=== PATIENT | female | born 1940 | race Caucasian/White ===

== ENCOUNTER 2018-01-18 20:33 | Emergency (ER) | payer MEDICARE ==
--- NOTE | 2018-01-18 21:09 | RAD ---
SINGLE VIEW OF THE CHEST: 01/18/18 COMPARISON: 10/16/16 HISTORY: Chest pain. Nausea and vomiting. FINDINGS: Single view of the chest shows a normal sized cardiomediastinal silhouette. There is no evidence of c onsolidation, mass, or pleural effusion. The bones are unremarkable. IMPRESSION: No evidence of acute cardiopulmonary disease. POS: [facility]
[2018-01-18 21:14] LABS: #Eosinphils 0.1 thou/uL (0.0-0.7); #Lymphocytes 1.8 thou/uL (1.20-3.40); #Monocytes 0.6 thou/uL (0.11-0.59); #Neutrophils 9.2 thou/uL (1.40-6.50); %Eosinophils 0.6 % (0.0-10.0); %Monocytes 5.3 % (0.0-10.0); Hemoglobin 14.2 g/dL (12.0-16.0); Mean Corpuscular HGB CONC 34.2 g/dL (32.0-36.0); Mean Corpuscular Hemoglobin 30.6 pg (27.0-31.0); Mean Corpuscular Volume 89.5 fl (81.0-99.0); Mean Platelet Volume 6.4 fL (7.4-10.4); Platelet Count 289 thou/uL (130-400); RBC Distribution Width 12.4 % (11.5-14.5); Red Blood Cell (RBC) Count 4.65 mill/uL (4.20-5.40); White Blood Cell (WBC) Count 11.6 thou/uL (4.8-10.8)
[2018-01-18 21:32] LABS: ALT (SGPT) 22 U/L (8-55); AST (SGOT) 18 U/L (5-34); Albumin 4.1 g/dL (3.4-4.8); Alkaline Phosphatase 97 U/L (40-150); Anion Gap 17 mmol/L (10-20); BUN (Urea Nitrogen) 13 mg/dL (9.8-20.1); Bilirubin, Total 0.4 mg/dL (0.2-1.2); Calc. Creatinine Clearance 0 mL/min (70-130); Calcium 10.6 mg/dL (7.8-10.44); Carbon Dioxide 26 mmol/L (23-31); Chloride 90 mmol/L (98-107); Estimated GFR-MDRD 75; Glucose 175 mg/dL (83-110); Protein, Total 7.1 g/dL (6.0-8.3); Sodium 129 mmol/L (136-145)
[2018-01-18 21:34] LABS: CKMB 1.4 ng/mL (0-6.6); Troponin I Less than 0.010 ng/mL (< 0.028)
--- NOTE | 2018-01-18 21:59 | CT ---
CT OF THE ABDOMEN AND PELVIS WITHOUT CONTRAST 01/18/18 COMPARISON: None. HISTORY: Intractable emesis. Generalized sick feeling that began this morning with weakness, nausea, and vomit ing. TECHNIQUE: Multiple contiguous axial images were obtained in a CT of the abdomen and pelvis without contrast. Co margo reformats were performed. FINDINGS: The liver, gallbladder, left kidney, adrenal glands, spleen and pancreas are unremarkable, although e valuation is limited without IV contrast. There is a small hypodensity emanating from the left kidney measuring 1.4 cm in size. This has a mean Hounsfield unit value of 11 and is nonspecific but could r epresent a cyst. There are scattered diverticula in the colon. The small bowel and appendix are unremarkable. The repr oductive organs are unremarkable. No abdominal or pelvic lymphadenopathy are seen. Atherosclerotic ca lcifications are seen in the aorta. Degenerative changes are seen in the spine. The visualized inferior thorax and abdominal wall soft ti ssues are unremarkable. IMPRESSION: 1. No evidence of acute intra-abdominal/pelvic abnormality. 2. Diverticulosis without evidence of acute diverticulitis. 3. Possible small right renal cyst. A nonemergent renal ultrasound is recommend to ensure that t his is a cystic and not a solid mass. This can be performed on an outpatient basis. POS: [facility]
== END 2018-01-18 22:31 | disposition home or self-care (01) ==
LOC: ERS 20:33
DX: G43.A1 Cyclical vomiting, in migraine, intractable (principal); I10 Essential (primary) hypertension; E11.9 Type 2 diabetes mellitus without complications; I25.10 Atherosclerotic heart disease of native coronary artery without angina pectoris; Z87.891 Personal history of nicotine dependence; Z79.84 Long term (current) use of oral hypoglycemic drugs; Z79.899 Other long term (current) drug therapy; Z79.82 Long term (current) use of aspirin
CPT/HCPCS: 36415; 71045; 74176; 80053; 82553; 83880; 84443; 84484; 85025; 93005; 96360

== ENCOUNTER 2018-02-15 08:26 | Outpatient (CLI) | payer MEDICARE, OTHER | END 2018-02-15 08:27 | disposition home or self-care (01) | LOC: BICULT 08:26 | PROVIDERS: ATTEND Internal Medicine Gastroenterology | DX: R11.2 Nausea with vomiting, unspecified (principal); R42 Dizziness and giddiness; E11.9 Type 2 diabetes mellitus without complications; R19.7 Diarrhea, unspecified; N28.1 Cyst of kidney, acquired; E66.9 Obesity, unspecified; E87.1 Hypo-osmolality and hyponatremia; K76.0 Fatty (change of) liver, not elsewhere classified | CPT/HCPCS: 76700 ==

== ENCOUNTER 2018-02-23 13:10 | Day surgery (SDC) | payer MEDICARE, OTHER ==
[2018-02-22 12:27] VITALS: BMI 45.3
[~2018-02-23 13:10] MED LIST: Lidocaine 1% PF 5 ML VIAL ONE; PROPOFOL 200 MG/20 ML VIAL ONE
[2018-02-23] MEDS ORDERED: Fentanyl 100 MCG/2 ML VIAL ONE (15:40)
--- NOTE | 2018-02-23 17:05 | OP ---
DATE OF PROCEDURE: 02/23/2018 PROCEDURE: Colonoscopy with snare polypectomy and biopsy. PREPROCEDURE DIAGNOSES: 1. Unexplained diarrhea. 2. Colon cancer screening. POSTPROCEDURE DIAGNOSES: 1. Exam to cecum; adequate bowel preparation. 2. Small, 5 mm sessile polyp in the cecum, removed by snare electrocautery. 3. Small, 3 mm, sessile polyp in the transverse colon, removed by cold snare technique. 4. Probable small submucosal lipoma in the mid ascending colon, biopsied. 5. Random biopsies obtained in the transverse colon for histopathology. 6. No evidence of overt colitis or ulcers. 7. Moderate left colonic diverticulosis. 8. Small internal hemorrhoids. 9. Otherwise normal colonoscopy. PROCEDURE IN DETAIL: Written informed consent was obtained. Upon completion of the EGD, the patient was repositioned for the colonoscopy. A digital rectal exam was performed that was unremarkable. A Pentax video colonoscope was inserted through the anal canal and advanced under direct visualization to the cecum. Position in the cecum was verified by clear identification of the appendiceal orifice and the ileocecal valve. The quality of the bowel preparation was adequate. Endoscopic findings re vealed small sessile polyp in the cecum, that measured approximately 5 mm and was removed by snare el ectrocautery. Good hemostasis was verified post-polypectomy. The tissue was submitted to pathology. Another smaller sessile polyp in the transverse colon measuring about 3 mm in diameter was removed by cold snare technique. The polyp tissue was retrieved and submitted to pathology. In the mid asce nding colon, a small to medium size submucosal lipoma was identified and biopsied. The overlying muc brooke was intact. The lipoma itself was soft and pliable when probed with the biopsy forceps. The tis mayur was submitted to pathology. Additional biopsies were obtained in the transverse colon to evaluat e for microscopic colitis. There was no evidence of ulcers or overt colitis. Frequent diverticular orifices were noted in the left colon. There was no evidence of diverticulitis or bleeding from thes e lesions. A retroflexed exam in the rectum demonstrated small internal hemorrhoids. The hemorrhoid s were not bleeding. The colon was then decompressed as the colonoscope was removed from the patient . She was transferred to the day stay surgery area for post-procedure monitoring. There were no imm ediate complications. RECOMMENDATIONS: 1. Await biopsy results. 2. Ask patient to call me in 1 week for biopsy results. 3. Take Imodium 2 mg tablet after a loose bowel movement p.r.n. diarrhea. 4. Follow up with me in 1 month.
--- NOTE | 2018-02-23 20:06 | OP ---
DATE OF PROCEDURE: 02/23/2018 TITLE OF PROCEDURE: EGD with biopsy. PREOPERATIVE DIAGNOSIS: Unexplained nausea and vomiting. POSTOPERATIVE DIAGNOSES: 1. Examination to second portion of duodenum. 2. Small sliding hiatal hernia, approximately 2 cm in diameter, biopsied. 3. Mild body gastritis with a small amount of heme staining, biopsied. 4. No evidence of gastric or duodenal ulcer. 5. Mild duodenitis involving the bulb, biopsied. 6. No evidence of active bleeding in the upper digestive tract. ANESTHESIA: Total intravenous anesthesia by Mrs. Penn PAYTON Nielsen. PROCEDURE IN DETAIL: Written informed consent was obtained. The patient was brought to the endoscop y suite. Total intravenous anesthesia was provided. The patient was placed in the left lateral decu bitus position. A bite block was inserted into the mouth. A Pentax video diagnostic gastroscope was introduced into the oral cavity and the esophagus was carefully intubated. The gastroscope was adva nced under direct visualization to the second portion of the duodenum. Endoscopic findings revealed a small sliding 2 cm hiatal hernia. The Z-line appeared mildly irregular, but there was no evidence of acute erosive esophagitis or esophageal ulcer. Biopsies were obtained in the lower esophagus just proximal to the hiatal hernia for histopathology. There was no evidence of esophageal stricture. T he stomach was entered and carefully examined. This included a retroflexed view of the cardia and fu ndus. Mild diffuse body gastritis was identified. Mucosal changes included superficial linear erosi ons, erythema, and a small amount of heme staining. Biopsies were obtained for histology. The duode num was then inspected and demonstrated mucosal changes consistent with a mild duodenitis in the bulb biopsies were obtained for histology. Mucosal changes included mild erythema, edema, and subepithel ial petechiae in a patchy distribution. No ulcer was identified in the stomach or duodenum. The sto mach was then decompressed as the endoscope was completely removed from the patient. She was reposit ioned for the colonoscopy. RECOMMENDATIONS: 1. Await biopsy results. 2. Ask the patient to call me in 1 week for biopsy results. 3. Follow up with me in clinic in 1 month. 4. We will ask the patient if she can reduce her aspirin dosing from 325 to 81 mg daily. 5. Initiate pantoprazole 40 mg q.a.m. for the next 6 weeks.
== END 2018-02-23 18:00 | disposition home or self-care (01) ==
LOC: SDC 13:10
PROVIDERS: ATTEND Internal Medicine Gastroenterology
PROC: 0DBH8ZX Excision of Cecum, Via Natural or Artificial Opening Endoscopic, Diagnostic (ICD-10-PCS; principal; 2018-02-23)
PROC: 0DBL8ZX Excision of Transverse Colon, Via Natural or Artificial Opening Endoscopic, Diagnostic (ICD-10-PCS; 2018-02-23)
PROC: 0DBK8ZX Excision of Ascending Colon, Via Natural or Artificial Opening Endoscopic, Diagnostic (ICD-10-PCS; 2018-02-23)
PROC: 0DB38ZX Excision of Lower Esophagus, Via Natural or Artificial Opening Endoscopic, Diagnostic (ICD-10-PCS; 2018-02-23)
PROC: 0DB68ZX Excision of Stomach, Via Natural or Artificial Opening Endoscopic, Diagnostic (ICD-10-PCS; 2018-02-23)
DX: K29.60 Other gastritis without bleeding (principal); D12.0 Benign neoplasm of cecum; K57.30 Diverticulosis of large intestine without perforation or abscess without bleeding; K64.8 Other hemorrhoids; E66.9 Obesity, unspecified; K21.9 Gastro-esophageal reflux disease without esophagitis; I25.10 Atherosclerotic heart disease of native coronary artery without angina pectoris; I10 Essential (primary) hypertension; E78.00 Pure hypercholesterolemia, unspecified; F41.9 Anxiety disorder, unspecified; E11.9 Type 2 diabetes mellitus without complications; Z68.42 Body mass index [BMI] 45.0-49.9, adult; Z79.82 Long term (current) use of aspirin; Z79.84 Long term (current) use of oral hypoglycemic drugs; Z79.899 Other long term (current) drug therapy; Z91.041 Radiographic dye allergy status; Z87.891 Personal history of nicotine dependence
CPT/HCPCS: 88305; 88312; 88313; J2001; J2704; J3010

== ENCOUNTER 2018-02-27 07:38 | Outpatient (CLI) | payer MEDICARE ==
--- NOTE | 2018-02-27 14:30 | NM ---
GASTRIC EMPTYING STUDY: Date: 02-27-18 History: Nausea, vomiting, unspecified. Radiopharmaceutical: 2.1 mCi Technetium 99M Sulfur Colloid mixed in scrambled eggs, PO. FINDINGS: Sequential anterior images of the abdomen are performed. There is 30% emptying at 60 minutes, 47% emp tying at 2 hours, 56% emptying at 3 hours, and 81% emptying at 4 hours. T is 107 minutes. IMPRESSION: Delayed gastric emptying with less than 90% emptying at 4 hours and a T of 107 minutes. POS: [facility]
== END 2018-02-27 07:39 | disposition home or self-care (01) ==
LOC: NM 07:38
PROVIDERS: ATTEND Internal Medicine Gastroenterology
DX: R11.2 Nausea with vomiting, unspecified (principal); R42 Dizziness and giddiness; R19.7 Diarrhea, unspecified; E11.9 Type 2 diabetes mellitus without complications; N28.1 Cyst of kidney, acquired; E66.3 Overweight; E87.1 Hypo-osmolality and hyponatremia; K30 Functional dyspepsia
CPT/HCPCS: 78264; A9541

== ENCOUNTER 2019-09-06 15:22 | Outpatient (CLI) | payer MEDICARE ==
--- NOTE | 2019-09-06 16:08 | MMO ---
Bilateral MAMMO Bilat Screen [facility]. CLINICAL HISTORY: Patient is 79 years old and is seen for screening. The patient has the following family history of breast cancer: paternal aunt. The patient has no personal history of cancer. VIEWS: The views performed were: bilateral craniocaudal with tomosynthesis and bilateral mediolateral oblique with tomosynthesis. FILMS COMPARED: The present examination has been compared to prior imaging studies performed at [facility] on 01/12/2012, 06/21/2014, 09/02/2015 and 10/21/2016. This study has been interpreted with the assistance of computer-aided detection. MAMMOGRAM FINDINGS: There are scattered fibroglandular densities. Finding 1: There are benign appearing calcifications seen in both breasts. Finding 2: There are vascular calcifications seen in both breasts. There are no suspicious masses, suspicious calcifications, or new areas of architectural distortion. IMPRESSION: THERE IS NO MAMMOGRAPHIC EVIDENCE OF MALIGNANCY. A ROUTINE FOLLOW-UP MAMMOGRAM IN 1 YEAR IS RECOMMENDED. THE RESULTS OF THIS EXAM WERE SENT TO THE PATIENT. ACR BI-RADS Category 2 - Benign finding MAMMOGRAPHY NOTE: 1. A negative mammogram report should not delay a biopsy if a dominant of clinically suspicious mass is present. 2. Approximately 10% to 15% of breast cancers are not detected by mammography. 3. Adenosis and dense breasts may obscure an underlying neoplasm. Reported by: RACH BARROS MD Electonically Signed: [id number]
== END 2019-09-06 15:23 | disposition home or self-care (01) ==
LOC: BICMAMMO 15:22
PROVIDERS: ATTEND Obstetrics & Gynecology
DX: Z12.31 Encounter for screening mammogram for malignant neoplasm of breast (principal); Z80.3 Family history of malignant neoplasm of breast
CPT/HCPCS: 77063; 77067

== ENCOUNTER 2019-10-08 15:32 | Inpatient (IN) | payer MEDICARE ==
[2019-10-08 16:21] LABS: #Basophils 0.1 thou/uL (0.0-0.2); #Eosinphils 0.2 thou/uL (0.0-0.7); #Monocytes 0.7 thou/uL (0.11-0.59); #Neutrophils 10.6 thou/uL (1.40-6.50); %Basophils 0.4 % (0.0-1.0); %Eosinophils 1.1 % (0.0-10.0); %Lymphocytes 14.5 % (21.0-51.0); %Monocytes 5.3 % (0.0-10.0); %Neutrophils 78.6 % (42.0-75.0); Hemoglobin 13.7 g/dL (12.0-16.0); Mean Corpuscular Hemoglobin 27.8 pg (27.0-31.0); Mean Corpuscular Volume 84.3 fL (78.0-98.0); Mean Platelet Volume 5.8 fL (7.4-10.4); Platelet Count 373 thou/uL (130-400); RBC Distribution Width 13.2 % (11.5-14.5); Red Blood Cell (RBC) Count 4.94 mill/uL (4.20-5.40); White Blood Cell (WBC) Count 13.5 thou/uL (4.8-10.8)
--- NOTE | 2019-10-08 16:29 | RAD ---
Chest one view HISTORY: Cough. COMPARISON: 01/18/2018. FINDINGS: Cardiac silhouette is magnified and enlarged. Pulmonary vasculature upper limits of normal. Mediastinum is midline with aortic calcification. Small amount of fluid in the minor fissure on the right. No lobar consolidation or evidence of pneumo thorax. IMPRESSION: Minimal right pleural fluid. Atherosclerosis.
[2019-10-08 16:42] LABS: ALT (SGPT) 16 U/L (8-55); AST (SGOT) 18 U/L (5-34); Alkaline Phosphatase 95 U/L (40-110); Anion Gap 13 mmol/L (10-20); BUN (Urea Nitrogen) 14 mg/dL (9.8-20.1); Bilirubin, Total 0.5 mg/dL (0.2-1.2); CK (CPK) 190 U/L (29-168); Calc. Creatinine Clearance 0 mL/min (70-130); Carbon Dioxide 28 mmol/L (23-31); Chloride 86 mmol/L (98-107); Estimated GFR-MDRD 76; Glucose 168 mg/dL (83-110); Potassium 3.1 mmol/L (3.5-5.1); Sodium 124 mmol/L (136-145)
[2019-10-08] MEDS ORDERED: predniSONE 20 MG TAB ONE (20:13)
[2019-10-08] MEDS ORDERED: hydrALAZINE 25 MG TAB ONE (22:18)
[2019-10-08] MEDS ORDERED: Carvedilol 25 MG TAB PO SCH (22:30)
--- NOTE | 2019-10-08 23:52 | PDOC.FPRHP ---
- History of Present Illness Chief Complaint: SOB, Cough History of Present Illness: 79-year-old female presented to the emergency department [facility] with complaints of shortness of breath, cough, and malaise. Patient stated that one week ago she developed cough and cold symptoms that have remained constant throughout the week. She denies experiencing any fevers or chills associated with this. She noted decrease in her appetite but states that she has continued to drink plenty of fluids. She states that overall she feels weak and tired with this. Shes been taking decongestants and cold medication for her symptoms without any improvement. Over the last couple days she stated that her shortness of breath has gradually increased prompting her to seek further evaluation today. Initial work up in the emergency department showed a mild elevation in her white count with hyponatremia and hypokalemia. CXR showing a large heart, borderline vascular congestion and some pleural fluid. Patient received a breathing treatment which she stated improved her shortness of breath. Patient states that she recently saw her plasma processor Dr. Santos two weeks ago. Should be nice and changes to her medications recently. She denies any swelling in her lower extremities or any new increased dyspnea on exertion. Patient states that she has had an echo previously at Dr. Goins office but she thinks was approximately one year ago. ED Course: CXR: cardiomegaly, borderline vascular congestion, right sided pleural fluid. WBC 13.5. Na: 124. K+: 3.1. O2 sat mid 90's on room air. pt received duoneb, prednisone burst, hydralazine and home coreg rx. - Allergies/Adverse Reactions Allergies Allergy/AdvReac Type Severity Reaction Status Date / Time Iodinated Contrast Media Allergy Verified 02/22/18 12:28 iodine Allergy Verified 02/22/18 12:28 IV dye/contrast Allergy Uncoded 02/22/18 12:28 - Home Medications Medication Instructions Recorded Confirmed Type Aspirin [Ecotrin Regular Strength] 325 mg PO DAILY 10/16/16 10/09/19 History Atorvastatin Calcium [Lipitor] 40 mg PO HS 10/16/16 10/09/19 History Carvedilol [Coreg] 25 mg PO BID 10/16/16 10/09/19 History Cholecalciferol (Vitamin D3) 2,000 unit PO DAILY 10/16/16 10/09/19 History [Vitamin D3] DULoxetine HCl [Cymbalta] 60 mg PO DAILY 10/16/16 10/09/19 History Glimepiride 4 mg PO QAM-WM 10/16/16 10/09/19 History Levothyroxine Sodium [Synthroid] 100 mcg PO DAILY 10/16/16 10/09/19 History Olmesartan/Hydrochlorothiazide 1 tablet PO DAILY 10/16/16 10/09/19 History [Benicar HCT] hydrALAZINE HCl 100 mg PO TID 10/16/16 10/09/19 History metFORMIN HCl [Glucophage] 1,000 mg PO BID-WM 10/16/16 10/09/19 History Pantoprazole [Protonix] 40 mg PO DAILY 02/23/18 10/09/19 History sitaGLIPtin Phosphate [Januvia] 100 mg PO DAILY 10/09/19 10/09/19 History - History PMHx: Macular Degeneration, depression, DM II, hypothyroidism, HTN, CAD PSHx: Stent x3, breast biopsy FHx: NH and CAD in mother and brother Social: 23 pack year smoking hx, quit ~25 years ago. Denies any alcohol or illicit drug use. - Review of Systems General: reports: weight/appetite/sleep changes (decreased appetite), fatigue. denies: fever/chills ENT: reports: nasal congestion. denies: rhinorrhea Respiratory: reports: cough, shortness of breath Cardiovascular: denies: chest pain, edema Gastrointestinal: denies: nausea, vomiting, diarrhea, constipation, abdominal pain Genitourinary: denies: dysuria, other Skin: denies: rashes, lesions Musculoskeletal: denies: pain, arthritis/arthralgias Neurological: denies: weakness, other Psychological: denies: other - Vital signs BP: 148/94, MAP: 112, Pulse: 100, Resp: 20 (Non-Labored), Pain: 0, O2 sat: 95 on (Room Air) - Physical Exam Constitutional: NAD, awake, alert and oriented, well developed HEENT: normocephalic and atraumatic, EOMI, conjunctiva clear, grossly normal vision, TM's clear and intact, grossly normal hearing, MMM Neck: FROM, no JVD Heart: RRR, normal S1/S2, no murmurs/rubs/gallops, pulses present, no edema -Lungs: Non labored breathing, scattered quiet expiratory wheezes, fine diffuse inspiratory crackles - worse on right and bases Abdomen: soft, non-tender, bowel sounds present Musculoskeletal: normal structure, normal tone, ROM grossly normal Neurological: no focal deficit, CN II-XII intact Skin: no rash/lesions, good turgor, capillary refill <2 seconds, no jaundice Heme/Lymphatic: no unusual bruising or bleeding, no purpura, no petechia Psychiatric: normal mood and affect, good judgment and insight, intact recent and remote memory FMR H&P: Results - Labs Result Diagrams: 10/10/19 03:38 10/10/19 03:38 Lab results: WBC 13.5 thou/uL (4.8-10.8) H 10/08/19 16:10 Hgb 13.7 g/dL (12.0-16.0) 10/08/19 16:10 Hct 41.6 % (36.0-47.0) 10/08/19 16:10 MCV 84.3 fL (78.0-98.0) 10/08/19 16:10 Plt Count 373 thou/uL (130-400) 10/08/19 16:10 Neutrophils % 78.6 % (42.0-75.0) H 10/08/19 16:10 Sodium 124 mmol/L (136-145) L 10/08/19 16:10 Potassium 3.1 mmol/L (3.5-5.1) L 10/08/19 16:10 Chloride 86 mmol/L (98-107) L 10/08/19 16:10 Carbon Dioxide 28 mmol/L (23-31) 10/08/19 16:10 BUN 14 mg/dL (9.8-20.1) 10/08/19 16:10 Creatinine 0.74 mg/dL (0.6-1.1) 10/08/19 16:10 Glucose 168 mg/dL (83-110) H 10/08/19 16:10 Calcium 10.0 mg/dL (7.8-10.44) 10/08/19 16:10 Total Bilirubin 0.5 mg/dL (0.2-1.2) 10/08/19 16:10 AST 18 U/L (5-34) 10/08/19 16:10 ALT 16 U/L (8-55) 10/08/19 16:10 Alkaline Phosphatase 95 U/L (40-110) 10/08/19 16:10 Creatine Kinase 190 U/L (29-168) H 10/08/19 16:10 B-Natriuretic Peptide 72.7 pg/mL (0-100) 10/08/19 16:10 Serum Total Protein 7.0 g/dL (6.0-8.3) 10/08/19 16:10 Albumin 4.0 g/dL (3.4-4.8) 10/08/19 16:10 - Radiology Interpretation Chest x-ray Status: report reviewed by me (Cardiac silhouette is magnified and enlarged. Pulmonary vasculature upper limits of normal. Mediastinum is midline with aortic calcification. Small amount of fluid in the minor fissure on the right. No lobar consolidation or evidence of pneumo thorax.) FMR H&P: A/P - Problem List (1) Hyponatremia Current Visit: Yes Status: Acute Code(s): E87.1 - HYPO-OSMOLALITY AND HYPONATREMIA (2) Hypokalemia Current Visit: Yes Status: Acute Code(s): E87.6 - HYPOKALEMIA (3) Bronchitis Current Visit: Yes Status: Acute Code(s): J40 - BRONCHITIS, NOT SPECIFIED ACUTE OR CHRONIC (4) CAD (coronary artery disease) Current Visit: No Status: Acute Code(s): I25.10 - ATHSCL HEART DISEASE OF [place] CORONARY ARTERY W/O ANG PCTRS (5) Depression Current Visit: No Status: Acute Code(s): F32.9 - MAJOR DEPRESSIVE DISORDER, SINGLE EPISODE, UNSPECIFIED (6) Diabetes mellitus Current Visit: No Status: Acute Code(s): E11.9 - TYPE 2 DIABETES MELLITUS WITHOUT COMPLICATIONS (7) HTN (hypertension) Current Visit: No Status: Acute Code(s): I10 - ESSENTIAL (PRIMARY) HYPERTENSION Qualifiers: Hypertension type: unspecified Qualified Code(s): I10 - Essential (primary ) hypertension (8) Hypothyroid Current Visit: No Status: Acute Code(s): E03.9 - HYPOTHYROIDISM, UNSPECIFIED (9) QT prolongation Current Visit: Yes Status: Acute Code(s): R94.31 - ABNORMAL ELECTROCARDIOGRAM [ECG] [EKG] - Plan Hyponatremia - hx of chronic hyponatremia, usually ~130 - Na: 124 in ED (125 corrected for glucose) - Received 500ml NS bolus in ED - Ordered urine and serum osmolality, urine Na to further evaluate - Fluid restriction at 1500ml - Hold HCTZ - Will trending morning BMP Hypokalemia - Potassium: 3.1 in ED - Replaced w/ 40 K-Dur - Pt reports no recent use of her prn spironolactone - Trending a.m. BMP Bronchitis - Dx consistent w/ pt's clinical hx and description of sx - CXR suggestive of possible borderline fluid overload, clinically has rales but this could be secondary to pulmonary infection vs fluid status, no peripheral edema or history suggestive of fluid overload including edema, orthopnea, progressive GUAJARDO beyond what pt expects - Pt notes previous Echo at plasma processor, 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 Santos 2 weeks ago, no change to rx at that time - WBC: 13.1 - Received prednisone burst in ED, continue 40 daily for 5 days - Doxycycline for bronchitis in setting of leukocytosis and left shift - Procal pending - Duoneb q4hr prn QT prolongation - cQT: 497, admit to tele for monitoring, avoid prolonging agents -------- Chronic problems: DM II - Continue home rx: Januvia, metformin, glimepiride - W/ pt's obesity and cardiac history she would benefit from GLP1-agonist, consider transition as outpt Hypothyroid - Home levothyroxine HTN - Continue home coreg, hydralazine, olmesartan - Hold HCTZ CAD - Continue home ASA Depression - Continue home duloxetine Code: Full Diet: CC, fluid restriction to 1500ml IVF: SL VTE: Lovenox Dispo: Admit to tele obs, ELOS < 48hr PCP: No Doc FMR H&P: Upper Level - Plan Date/Time: 10/08/19 5437 I, Ruddy Garcia DO, have evaluated this patient and agree with findings/ plan as outlined by manufacturing engineering intern resident. Pertinent changes/additions are listed here. I was present for above history and physical exam and discussed in detail plan with Dr Ma. Agree with above findings and a/p. 79 yo F presents wityh 7 day cough. Found to have worsening hyponatremia in ED as well as Low K+. Will admit to medical and order hypoNa studies. Rx doxycycline for presumptive brocnhitis. Check procal, Strep urAg and Ur legionella ag. Fluid restrict. Monitor Is Os and trend BMP. Addendum - Attending - Attending Attestation Date/Time: 10/10/19 7512 I personally evaluated the patient and discussed the management with the team on day of admission. I agree with the History, Examination, Assessment and Plan documented above with any addition or exceptions noted below. I heard no crackles. I suspect mostly COPD/chronic bronchitis as good response to bronchodilators and no orthop/PND/JVD/edema.
[2019-10-09] MEDS: Levothyroxine Sodium 100 MCG TAB PO SCH (06:48)
--- NOTE | 2019-10-09 06:49 | PDOC.FM ---
- Subjective Subjective: Patient seen sleeping in bed this morning, appears comfortable. No signs of respiratory distress. Patient's RN reports that patient had no complaints overnight. - Objective Result Diagrams: 10/09/19 07:16 10/09/19 07:16 Phys Exam - Physical Examination Constitutional: NAD HEENT: moist MMs Neck: no JVD, supple Respiratory: no wheezing, no rhonchi occasional scattered rales Cardiovascular: RRR, no significant murmur Gastrointestinal: soft, positive bowel sounds Musculoskeletal: pulses present 1+ nonpitting edema in LE Skin: no rash, normal turgor Dx/Plan (1) Bronchitis Code(s): J40 - BRONCHITIS, NOT SPECIFIED ACUTE OR CHRONIC Status: Acute (2) Hypokalemia Code(s): E87.6 - HYPOKALEMIA Status: Acute (3) Hyponatremia Code(s): E87.1 - HYPO-OSMOLALITY AND HYPONATREMIA Status: Acute (4) QT prolongation Code(s): R94.31 - ABNORMAL ELECTROCARDIOGRAM [ECG] [EKG] Status: Acute (5) HTN (hypertension) Code(s): I10 - ESSENTIAL (PRIMARY) HYPERTENSION Status: Acute Qualifiers: Hypertension type: unspecified Qualified Code(s): I10 - Essential (primary ) hypertension - Plan Plan: Patient is a 79 yo Female with complaint of SOB and malaise is admitted for electrolyte abnormalities & bronchitis: #Hyponatremia - hx of chronic hyponatremia, usually ~130 - Na: 124 in ED (125 corrected for glucose) - Received 500ml NS bolus in ED - Pending urine osm, urine Na to further evaluate, serum osm 267 (low) - Fluid restriction at 1500ml - Hold HCTZ - Trend AM BMP #Hypokalemia - Potassium: 3.1 in ED - Replaced w/ 40 K-Dur - Pt reports no recent use of her prn spironolactone - Trending AM BMP #Bronchitis - Dx consistent w/ pt's clinical hx and description of sx - CXR suggestive of possible borderline fluid overload, clinically has rales but otherwise exam/history not suggestive of overload - Pt notes previous Echo at market research interviewer, 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 Santos 2 weeks ago, no change to rx at that time - WBC: 13.1 on admission - Received prednisone burst in ED, continue 40 daily for 5 days - Doxycycline for bronchitis in setting of leukocytosis and left shift - Procal <.02 - Duoneb q4hr prn #QT prolongation - cQT: 497 -admit to tele for monitoring -avoid QT prolonging agents #DM II - Continue home rx: Januvia, metformin, glimepiride - W/ pt's obesity and cardiac history she would benefit from GLP1-agonist, consider transition as outpt #Hypothyroid - Home levothyroxine #HTN - Continue home coreg, hydralazine, olmesartan - Hold HCTZ #CAD - Continue home ASA #Depression - Continue home duloxetine Code: Full Diet: CC, fluid restriction to 1500ml IVF: SL VTE: Lovenox Dispo: Stable, admitted to observation on telemetry unit. Continue fluid restriction. Anticipate discharge in <48hr. PCP: No Doc Addendum - Attending - Attending Attestation Date/Time: 10/09/19 1450 I personally evaluated the patient and discussed the management with Dr. Guevara. I agree with the History, Examination, Assessment and Plan documented above with any addition or exceptions noted below. Patient with acute COPD exacerbation. Will treat with nebs, steroids, and antibiotics. Hopeful d/c tomorrow. No signs of volume overload.
[2019-10-09] MEDS ORDERED: Acetaminophen 325 MG TAB PO PRN (07:18)
[2019-10-09] MEDS ORDERED: Guaifenesin DM 100-10/5 ML UDCUP PO PRN (07:18)
[2019-10-09 07:28] LABS: #Lymphocytes 1.6 thou/uL (1.20-3.40); #Monocytes 0.6 thou/uL (0.11-0.59); #Neutrophils 10.1 thou/uL (1.40-6.50); %Basophils 0.1 % (0.0-1.0); %Eosinophils 0.3 % (0.0-10.0); %Lymphocytes 12.6 % (21.0-51.0); Mean Corpuscular HGB CONC 32.9 g/dL (32.0-36.0); Platelet Count 390 thou/uL (130-400); RBC Distribution Width 13.3 % (11.5-14.5); White Blood Cell (WBC) Count 12.3 thou/uL (4.8-10.8)
[2019-10-09 07:47] LABS: Anion Gap 15 mmol/L (10-20); BUN (Urea Nitrogen) 12 mg/dL (9.8-20.1); Calc. Creatinine Clearance 0 mL/min (70-130); Calcium 9.7 mg/dL (7.8-10.44); Carbon Dioxide 24 mmol/L (23-31); Chloride 88 mmol/L (98-107); Estimated GFR-MDRD 70; Glucose 321 mg/dL (83-110); Potassium 3.8 mmol/L (3.5-5.1); Sodium 123 mmol/L (136-145)
[2019-10-09] MEDS ORDERED: Olmesartan 5 MG TAB PO SCH (09:00)
[2019-10-09] MEDS ORDERED: Alogliptin 25 MG TAB PO SCH ×2 (09:00→21:00)
[2019-10-09] MEDS ORDERED: Doxycycline 100 MG in Syringe 0 ML IVPB SCH (09:00)
[2019-10-09] MEDS: metFORMIN 500 MG TAB PO SCH ×2 (10:13→17:19)
[2019-10-09] MEDS: Glimepiride 2 MG TAB PO SCH (10:14)
[2019-10-09] MEDS: hydrALAZINE 25 MG TAB PO SCH ×3 (10:14→20:23)
[2019-10-09] MEDS: Losartan 25 MG TAB PO SCH (10:15)
[2019-10-09] MEDS: Aspirin 325 mg Enteric Coated Tablet PO SCH (10:15)
[2019-10-09] MEDS: predniSONE 20 MG TAB PO SCH (10:22)
[2019-10-09] MEDS: Enoxaparin Sodium 40 MG/0.4 ML SYRINGE SC SCH (10:23)
[2019-10-09] MEDS: Carvedilol 25 MG TAB PO SCH ×2 (10:23→20:24)
[2019-10-09] MEDS: DULoxetine 60 MG CAP PO SCH (10:23)
[2019-10-09] MEDS ORDERED: Loperamide HCl 2 MG CAP PO SCH (12:15)
[2019-10-09] MEDS: Benzonatate 100 MG CAP PO PRN (12:43)
[2019-10-09 14:36] LABS: Troponin I Less than 0.010 ng/mL (< 0.028)
[2019-10-09] MEDS ORDERED: Atorvastatin Calcium 40 MG TAB PO SCH (21:00)
[2019-10-09 22:56] LABS: Troponin I Less than 0.010 ng/mL (< 0.028)
[2019-10-10 04:13] LABS: #Lymphocytes 2.5 thou/uL (1.20-3.40); #Monocytes 1.2 thou/uL (0.11-0.59); #Neutrophils 10.7 thou/uL (1.40-6.50); %Basophils 0.1 % (0.0-1.0); %Eosinophils 0.3 % (0.0-10.0); %Lymphocytes 17.2 % (21.0-51.0); %Monocytes 8.4 % (0.0-10.0); Hemoglobin 12.7 g/dL (12.0-16.0); Mean Corpuscular HGB CONC 31.2 g/dL (32.0-36.0); Mean Corpuscular Hemoglobin 26.7 pg (27.0-31.0); Mean Corpuscular Volume 85.5 fL (78.0-98.0); Mean Platelet Volume 6.2 fL (7.4-10.4); Platelet Count 398 thou/uL (130-400); RBC Distribution Width 13.5 % (11.5-14.5); Red Blood Cell (RBC) Count 4.76 mill/uL (4.20-5.40); White Blood Cell (WBC) Count 14.5 thou/uL (4.8-10.8)
[2019-10-10 04:28] LABS: Anion Gap 15 mmol/L (10-20); BUN (Urea Nitrogen) 16 mg/dL (9.8-20.1); Calc. Creatinine Clearance 103 mL/min (70-130); Calcium 9.5 mg/dL (7.8-10.44); Carbon Dioxide 24 mmol/L (23-31); Chloride 95 mmol/L (98-107); Estimated GFR-MDRD 73; Glucose 182 mg/dL (83-110); Potassium 3.5 mmol/L (3.5-5.1); Sodium 130 mmol/L (136-145)
[2019-10-10] MEDS: Benzonatate 100 MG CAP PO PRN (06:10)
[2019-10-10] MEDS: Levothyroxine Sodium 100 MCG TAB PO SCH (06:10)
--- NOTE | 2019-10-10 06:30 | PDOC.FM ---
- Subjective Subjective: Patient lying in bed resting comfortably this mornings. States that she did not get much sleep last night. Continue to complain of cough, says the Tessalon she was given did not make a difference. Patient does feel that her wheezing has improved somewhat. Otherwise denies any chest pain or shortness of breath. Did have 1 episode of loose stools yesterday, which patient says is normal for her and that she has history of IBS. No further episodes of loose stools overnight. - Objective Vital Signs & Weight: Vital Signs (12 hours) Temp Pulse Resp BP BP Pulse Ox 10/10/19 03:21 97.7 F 83 20 161/75 H 94 L 10/09/19 23:51 98.2 F 94 18 129/58 L 92 L 10/09/19 20:23 107 H 201/81 H 10/09/19 20:00 98.3 F 107 H 24 H 201/81 H 95 10/09/19 19:27 108 H 20 94 L Weight Weight 108.272 kg I&O: 10/08/19 10/09/19 10/10/19 06:59 06:59 06:59 Intake Total 1200 Balance 1200 Result Diagrams: 10/10/19 03:38 10/10/19 03:38 Phys Exam - Physical Examination Constitutional: NAD HEENT: moist MMs, sclera anicteric Neck: no JVD, supple, full ROM Respiratory: no rhonchi scattered expiratory wheezing heard throughout Cardiovascular: RRR, no significant murmur Gastrointestinal: soft, non-tender, positive bowel sounds Musculoskeletal: pulses present 1+ nonpitting edema in bilateral LE Neurological: normal sensation, moves all 4 limbs Psychiatric: normal affect, A&O x 3 Skin: no rash, normal turgor Dx/Plan (1) Bronchitis Code(s): J40 - BRONCHITIS, NOT SPECIFIED ACUTE OR CHRONIC Status: Acute (2) Hypokalemia Code(s): E87.6 - HYPOKALEMIA Status: Acute (3) Hyponatremia Code(s): E87.1 - HYPO-OSMOLALITY AND HYPONATREMIA Status: Acute (4) QT prolongation Code(s): R94.31 - ABNORMAL ELECTROCARDIOGRAM [ECG] [EKG] Status: Acute (5) HTN (hypertension) Code(s): I10 - ESSENTIAL (PRIMARY) HYPERTENSION Status: Acute Qualifiers: Hypertension type: unspecified Qualified Code(s): I10 - Essential (primary ) hypertension - Plan Plan: Patient is a 79 yo Female with complaint of SOB and malaise is admitted for electrolyte abnormalities & bronchitis: #Hyponatremia - hx of chronic hyponatremia, usually ~130 - Na: 124 in ED (125 corrected for glucose), improved to 130 (131 corrected) today (10/10) - Received 500ml NS bolus in ED - Pending urine osm, urine Na to further evaluate, serum osm 267 (low) - Fluid restriction at 1500ml - Hold HCTZ - Trend AM BMP #Hypokalemia - Potassium: 3.1 in ED, is 3.5 on 10/10 - Replaced w/ K-Dur - Pt reports no recent use of her prn spironolactone - Trending AM BMP #Bronchitis vs COPD Exacerbation - both likely contributing to patient's presentation - Bronchitis Dx consistent w/ pt's clinical hx and description of sx - CXR suggestive of possible borderline fluid overload, clinically has rales but otherwise exam/history not suggestive of overload - Pt notes previous Echo at barber shop operator, 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 Santos 2 weeks ago, no change to rx at that time - Called Dr. Santos's office and they have no record of ECHO being performed at their office - WBC: 13.1 on admission - Received prednisone burst in ED, continue 40 daily for 5 days - Doxycycline for bronchitis in setting of leukocytosis and left shift - Procal <.02 - Duoneb q4hr prn #QT prolongation - cQT: 497 -admit to tele for monitoring -avoid QT prolonging agents #DM II - Continue home rx: Januvia, metformin, glimepiride - W/ pt's obesity and cardiac history she would benefit from GLP1-agonist, consider transition as outpt #Hypothyroid - Home levothyroxine #HTN - Continue home coreg, hydralazine, olmesartan - Hold HCTZ - monitor BP, has had 1 severe range pressure but taken just after Duoneb treatment #CAD - Continue home ASA #Depression - Continue home duloxetine Code: Full Diet: CC, fluid restriction to 1500ml IVF: SL VTE: Lovenox Dispo: Stable, admitted to observation on telemetry unit. Continue fluid restriction. Await ECHO to be taken today. Urine studies pending collection. Anticipate discharge in <48hr. PCP: No Doc Addendum - Attending - Attending Attestation Date/Time: 10/10/19 9297 I personally evaluated the patient and discussed the management with the team. I agree with the History, Examination, Assessment and Plan documented above with any addition or exceptions noted below. +s. pneumo - change to amoxicillin or augmentin DM - add sliding scale as not controlled. Hopefully home today.
[2019-10-10] MEDS: predniSONE 20 MG TAB PO SCH (09:00)
[2019-10-10] MEDS: metFORMIN 500 MG TAB PO SCH ×2 (09:00→17:31)
[2019-10-10] MEDS: Enoxaparin Sodium 40 MG/0.4 ML SYRINGE SC SCH (09:01)
[2019-10-10] MEDS: Aspirin 325 mg Enteric Coated Tablet PO SCH (09:01)
[2019-10-10] MEDS: Losartan 25 MG TAB PO SCH (09:01)
[2019-10-10] MEDS: hydrALAZINE 25 MG TAB PO SCH ×2 (09:01→15:28)
[2019-10-10] MEDS: DULoxetine 60 MG CAP PO SCH (09:01)
[2019-10-10] MEDS: Carvedilol 25 MG TAB PO SCH (09:01)
[2019-10-10] MEDS: Glimepiride 2 MG TAB PO SCH (09:14)
[2019-10-10 11:57] LABS: Legionella Urinary Ag Negative (Negative); Strep pneumo Urine Ag POSITIVE (NEGATIVE)
[2019-10-10] MEDS ORDERED: Dextrose 5% in Water 1,000 ML IV PRN (12:05)
[2019-10-10] MEDS ORDERED: HumaLOG 300 UNITS/3 ML VIAL SC PRN (12:05)
[2019-10-10] MEDS ORDERED: Dextrose 50% Abboject 50 ML SYRINGE SLOW IVP PRN (12:05)
[2019-10-10 14:27] VITALS: BMI 43.6
[2019-10-10 15:28] VITALS: BP 137/60; TEMP 97.9
[2019-10-10] MEDS ORDERED: AMOXicillin 250 MG CAP PO SCH (21:00)
== END 2019-10-10 20:41 | disposition home or self-care (01) | DRG 202 ==
LOC: ERS 15:32 → ERHOLD 23:22 → 2NO 10-09 09:56
PROVIDERS: ADMIT Student in an Organized Health Care Education/Training Program; ATTEND Student in an Organized Health Care Education/Training Program
DX: J20.9 Acute bronchitis, unspecified (principal); J44.1 Chronic obstructive pulmonary disease with (acute) exacerbation; E87.1 Hypo-osmolality and hyponatremia; J44.0 Chronic obstructive pulmonary disease with (acute) lower respiratory infection; Z91.041 Radiographic dye allergy status; E87.6 Hypokalemia; Z79.82 Long term (current) use of aspirin; Z79.84 Long term (current) use of oral hypoglycemic drugs; Z79.899 Other long term (current) drug therapy; F32.9 Major depressive disorder, single episode, unspecified; E11.9 Type 2 diabetes mellitus without complications; E03.9 Hypothyroidism, unspecified; I10 Essential (primary) hypertension; I25.10 Atherosclerotic heart disease of native coronary artery without angina pectoris; Z87.891 Personal history of nicotine dependence; R94.31 Abnormal electrocardiogram [ECG] [EKG]
CPT/HCPCS: 36415; 36416; 71045; 80048; 80053; 82550; 83880; 83930; 83935; 84145; 84300; 84484; 85025; 87449; 87899; 93005; 93306; 94640; J1650; J3490; J7512; J7620

== ENCOUNTER 2021-10-27 10:27 | Outpatient (CLI) | payer MEDICARE | END 2021-10-27 10:28 | disposition home or self-care (01) | LOC: TBSIIMAG 10:27 | PROVIDERS: ATTEND Orthopaedic Surgery | DX: M25.561 Pain in right knee (principal); S83.251A Bucket-handle tear of lateral meniscus, current injury, right knee, initial encounter ==

== ENCOUNTER 2021-12-14 14:24 | Outpatient (CLI) | payer MEDICARE | END 2021-12-14 14:25 | disposition home or self-care (01) | LOC: BICMAMMO 14:24 | PROVIDERS: ATTEND Family Medicine | DX: Z12.31 Encounter for screening mammogram for malignant neoplasm of breast (principal); Z80.3 Family history of malignant neoplasm of breast | CPT/HCPCS: 77063; 77067 ==

== ENCOUNTER 2022-11-09 15:06 | Outpatient (CLI) | payer MEDICARE | END 2022-11-09 15:07 | disposition home or self-care (01) | LOC: BICRAD 15:06 | PROVIDERS: ATTEND Internal Medicine Cardiovascular Disease | DX: R06.02 Shortness of breath (principal) | CPT/HCPCS: 71046; 80048; 83880; 85025 ==

== ENCOUNTER 2024-04-05 16:31 | Observation (INO) | payer MEDICARE ==
[2024-04-05 18:03] LABS: Red Blood Cell (RBC) Count 4.85 mill/uL (4.20-5.40)
[2024-04-05 18:16] LABS: #Basophils Less than 0.03 10x3/uL (0.0-0.2); %Basophils 0.2 % (0.0-1.0); %Eosinophils 1.1 % (0.0-10.0); %Lymphocytes 18.3 % (21.0-51.0); %Monocytes 9.1 % (0.0-10.0); %Neutrophils 70.8 % (42.0-75.0); Hematocrit 34.9 % (36.0-47.0); Hemoglobin 9.7 g/dL (12.0-16.0); Mean Corpuscular HGB CONC 27.8 g/dL (32.0-36.0); Mean Platelet Volume 8.8 fL (7.4-10.4); Platelet Count 335 10x3/uL (130-400); RBC Distribution Width 20.2 % (11.5-14.5)
[2024-04-05 18:17] LABS: ALT (SGPT) 5 U/L (8-55); AST (SGOT) 13 U/L (5-34); Albumin 3.1 g/dL (3.4-4.8); Alkaline Phosphatase 70 U/L (40-110); Anion Gap 13 mmol/L (10-20); Anisocytosis SLIGHT = 6-15 cells HPF (0-5); BUN (Urea Nitrogen) 10 mg/dL (9.8-20.1); Bilirubin, Total 0.4 mg/dL (0.2-1.2); Calc. Creatinine Clearance 0 mL/min (70-130); Calcium 8.9 mg/dL (7.8-10.44); Carbon Dioxide 29 mmol/L (23-31); Chloride 104 mmol/L (98-107); Estimated GFR 86; Globulin 3.1 g/dL (2.4-3.5); Glucose 131 mg/dL (83-110); Hypochromia SLIGHT = 6-15 cells HPF (0-5); Magnesium 0.9 mg/dL (1.6-2.6); Microcytosis SLIGHT = 6-15 cells HPF (0-5); Ovalocytes SLIGHT = 2-5 cells HPF (0-1); Platelet Adequacy Comment Platelets Normal; Polychromasia SLIGHT = 2-3 cells HPF (0-2); Potassium 3.2 mmol/L (3.5-5.1); Protein, Total 6.2 g/dL (5.8-8.1); Sodium 143 mmol/L (136-145)
[2024-04-05] MEDS ORDERED: Magnesium 2 GM/50 ML BAG (IN WATER) ONE (18:35)
[2024-04-05] MEDS ORDERED: hydrALAZINE 20 MG/ML VIAL ONE (19:10)
[2024-04-05] MEDS ORDERED: Acetaminophen 650 MG Suppository PR PRN (19:26)
[2024-04-05] MEDS ORDERED: Ondansetron ODT 4 MG TAB PO PRN (19:26)
[2024-04-05] MEDS ORDERED: Acetaminophen 325 MG TAB PO PRN (19:26)
[2024-04-05] MEDS ORDERED: Ondansetron PF 4 MG/2 ML Vial IVP PRN (19:26)
[2024-04-05] MEDS ORDERED: hydrALAZINE 20 MG/ML VIAL SLOW IVP PRN (19:26)
[2024-04-05] MEDS ORDERED: Glucagon 1 MG/ML KIT IM PRN (19:30)
[2024-04-05] MEDS ORDERED: Dextrose 5% in Water 1,000 ML IV PRN (19:30)
[2024-04-05] MEDS ORDERED: HumaLOG 300 UNITS/3 ML VIAL SC PRN ×2 (19:30)
[2024-04-05] MEDS ORDERED: Dextrose 50% Abboject 50 ML SYRINGE SLOW IVP PRN (19:30)
[2024-04-05] MEDS ORDERED: Electrolyte Replacement Protocol 1 EACH FS SCH (19:45)
[2024-04-05 21:00] VITALS: BMI 40.1
[2024-04-05] MEDS: Magnesium 2 GM/50 ML(in water) 2 GM in Premix 1 BAG IVPB SCH ×2 (21:18→23:10)
[2024-04-05] MEDS: Potassium Chloride 20 MEQ TAB PO SCH (23:10)
[2024-04-06 03:13] LABS: #Basophils Less than 0.03 10x3/uL (0.0-0.2); %Basophils 0.2 % (0.0-1.0); %Lymphocytes 20.8 % (21.0-51.0); %Monocytes 9.5 % (0.0-10.0); Hematocrit 34.7 % (36.0-47.0); Hemoglobin 9.8 g/dL (12.0-16.0); Mean Corpuscular HGB CONC 28.2 g/dL (32.0-36.0); Mean Corpuscular Hemoglobin 19.7 pg (27.0-31.0); Mean Corpuscular Volume 69.7 fL (78.0-98.0); Mean Platelet Volume 8.9 fL (7.4-10.4); Platelet Count 337 10x3/uL (130-400); RBC Distribution Width 20.4 % (11.5-14.5); Red Blood Cell (RBC) Count 4.98 mill/uL (4.20-5.40)
[2024-04-06 03:22] LABS: Magnesium 1.8 mg/dL (1.6-2.6)
[2024-04-06] MEDS: Magnesium 2 GM/50 ML(in water) 2 GM in Premix 1 BAG IVPB SCH ×2 (05:30→22:29)
[2024-04-06 06:49] LABS: Anion Gap 15 mmol/L (10-20); BUN (Urea Nitrogen) 8 mg/dL (9.8-20.1); Calc. Creatinine Clearance 98 mL/min (70-130); Carbon Dioxide 28 mmol/L (23-31); Chloride 104 mmol/L (98-107); Estimated GFR 88; Potassium 3.2 mmol/L (3.5-5.1); Sodium 144 mmol/L (136-145)
[2024-04-06 06:50] LABS: Calcium 8.7 mg/dL (7.6-10.4); Cardiac Risk 4.7 (Less than 4.5); Cholesterol 127 mg/dL (< 200 Desired); Glucose 148 mg/dL (83-110); HDL Cholesterol 27 mg/dL (>60 Neg Risk); Iron 18 ug/dL (50-170); Iron Binding Capacity, Total 291 mcg/dL (265-497); LDL Cholesterol, Calculated 74 mg/dL; Triglycerides 131 mg/dL (Less than 150)
[2024-04-06] MEDS: Glimepiride 2 MG TAB PO SCH (08:13)
[2024-04-06] MEDS: Potassium Chloride 20 MEQ TAB PO SCH (08:14)
[2024-04-06] MEDS ORDERED: Non-Formulary Item 1 EACH (Cholecalciferol (Vitamin D3) [Vitamin D3] 2,000 UNIT Capsule) PO SCH (09:00)
[2024-04-06] MEDS ORDERED: Non-Formulary Item 1 EACH (Sitagliptin Phosphate [Januvia] 100 MG Tab) PO SCH (09:00)
[2024-04-06] MEDS ORDERED: Aspirin 325 mg Enteric Coated Tablet PO SCH (09:00)
[2024-04-06] MEDS: Alogliptin 25 MG TAB PO SCH (09:50)
[2024-04-06] MEDS: Carvedilol 25 MG TAB PO SCH (09:51)
[2024-04-06] MEDS: Aspirin 81 mg Enteric Coated Tablet PO SCH (09:51)
[2024-04-06] MEDS: Cholecalciferol 1,000 UNITS (25 MCG) TAB PO SCH (09:52)
[2024-04-06] MEDS: DULoxetine 60 MG CAP PO SCH (09:54)
[2024-04-06] MEDS: Enoxaparin 40 MG (0.4 mL) SYRINGE SC SCH (09:55)
[2024-04-06] MEDS: Levothyroxine Sodium 100 MCG TAB PO SCH (09:56)
[2024-04-06] MEDS: Pantoprazole DR 40 MG TAB PO SCH (09:56)
[2024-04-06] MEDS: Lorazepam 2 MG/ML VIAL SLOW IVP SCH (12:00)
[2024-04-06] MEDS: Sodium Ferric Gluconate 250 MG in Sodium Chloride 0.9% 250 ML 250 ML IVPB SCH (12:56)
[2024-04-06 18:44] LABS: Potassium 3.9 mmol/L (3.5-5.1)
[2024-04-06] MEDS: Atorvastatin Calcium 40 MG TAB PO SCH (20:59)
[2024-04-07 05:36] LABS: Anion Gap 16 mmol/L (10-20); BUN (Urea Nitrogen) 7 mg/dL (9.8-20.1); Calc. Creatinine Clearance 100 mL/min (70-130); Calcium 8.8 mg/dL (7.8-10.44); Carbon Dioxide 22 mmol/L (23-31); Chloride 106 mmol/L (98-107); Estimated GFR 88; Glucose 157 mg/dL (83-110); Magnesium 2.2 mg/dL (1.6-2.6); Potassium 3.7 mmol/L (3.5-5.1); Sodium 140 mmol/L (136-145)
[2024-04-07 06:34] LABS: #Basophils 0.03 10x3/uL (0.0-0.2); %Basophils 0.3 % (0.0-1.0); %Eosinophils 1.1 % (0.0-10.0); %Lymphocytes 18.6 % (21.0-51.0); %Monocytes 11.3 % (0.0-10.0); %Neutrophils 68.1 % (42.0-75.0); Hematocrit 36.2 % (36.0-47.0); Hemoglobin 9.9 g/dL (12.0-16.0); Mean Corpuscular HGB CONC 27.3 g/dL (32.0-36.0); Mean Corpuscular Hemoglobin 19.4 pg (27.0-31.0); Mean Platelet Volume 9.5 fL (7.4-10.4); Platelet Count 343 10x3/uL (130-400); RBC Distribution Width 20.5 % (11.5-14.5)
[2024-04-07 08:13] VITALS: TEMP 98.1
[2024-04-07 13:27] VITALS: BP 148/80
== END 2024-04-07 16:31 | disposition home or self-care (01) ==
LOC: ERS 16:31 → 2SE 19:21
PROVIDERS: ADMIT Student in an Organized Health Care Education/Training Program; ATTEND Internal Medicine
PROC: B246ZZZ Ultrasonography of Right and Left Heart (ICD-10-PCS; principal; 2024-04-07)
DX: R29.810 Facial weakness (principal); R26.9 Unspecified abnormalities of gait and mobility; E83.42 Hypomagnesemia; E87.6 Hypokalemia; D64.9 Anemia, unspecified; D50.9 Iron deficiency anemia, unspecified; I11.9 Hypertensive heart disease without heart failure; E11.9 Type 2 diabetes mellitus without complications; I25.10 Atherosclerotic heart disease of native coronary artery without angina pectoris; F32.9 Major depressive disorder, single episode, unspecified; Z79.82 Long term (current) use of aspirin; Z79.84 Long term (current) use of oral hypoglycemic drugs; Z79.899 Other long term (current) drug therapy; Z91.041 Radiographic dye allergy status; Z95.818 Presence of other cardiac implants and grafts
CPT/HCPCS: 70450; 70551; 80048 ×2; 80053; 80061; 82728; 82962 ×3; 83540; 83550; 83735 ×3; 84132; 85025 ×3; 93005; 93306; 93880; 96365; 97116; 99285; J1650 ×2; J2060; J2916 ×2; J3475 ×2; J7050 ×2; 36415; 36416; J0360; J1815